=== PATIENT | female | born 1970 | race Caucasian/White ===

== ENCOUNTER 2021-04-08 09:45 | Outpatient (CLI) | payer OTHER ==
[2021-04-08 21:45] LABS: SARS-CoV-2 PCR by NAA DETECTED (NotDetected)
== END 2021-04-08 09:46 | disposition home or self-care (01) ==
LOC: MADLAB 09:45
PROVIDERS: ATTEND Family Medicine
DX: U07.1 COVID-19 (principal)
CPT/HCPCS: U0003; U0005